=== PATIENT | female | born 1950 | race Caucasian/White ===

== ENCOUNTER → 2023-12-18 11:41 | Outpatient (REF) | payer MEDICARE, OTHER, SELFPAY | LOC: WDC 11:41 | PROVIDERS: ATTENDING PHYSICIAN Obstetrics & Gynecology Gynecology | DX: Z12.31 Encounter for screening mammogram for malignant neoplasm of breast (principal) | CPT/HCPCS: 77063; 77067 ==

== ENCOUNTER → 2024-11-01 10:15 | Outpatient (REF) | payer MEDICARE, OTHER, SELFPAY | LOC: RAD 10:15 | PROVIDERS: ATTENDING PHYSICIAN Obstetrics & Gynecology Gynecology; FAMILY PHYSICIAN Physician Assistant Medical | DX: M81.0 Age-related osteoporosis without current pathological fracture (principal) | CPT/HCPCS: 77080 ==

== ENCOUNTER → 2024-12-23 11:45 | Outpatient (REF) | payer MEDICARE, OTHER, SELFPAY | LOC: WDC 11:45 | PROVIDERS: ATTENDING PHYSICIAN Obstetrics & Gynecology Gynecology; FAMILY PHYSICIAN Physician Assistant Medical | DX: Z12.31 Encounter for screening mammogram for malignant neoplasm of breast (principal) | CPT/HCPCS: 77063; 77067 ==

== ENCOUNTER → 2025-04-18 10:58 | Outpatient (REF) | payer MEDICARE, OTHER, SELFPAY ==
[2025-04-18 11:48] LABS: Hematocrit 43.3 % (37.0-47.0); Hemoglobin 14.4 g/dL (12.0-16.0); Mean Corp Hgb Conc. 33.3 g/dL (33.0-37.0); Mean Corpuscular Volume 93.7 fL (81.0-99.0); Nucleated Red Blood Cells % 0 %; Platelet Count 269 10^3/uL (130-400); Red Cell Dist. Width 12.2 % (11.5-14.5)
[2025-04-18 12:27] LABS: Blood Urea Nitrogen 20 mg/dl (7-17); Calcium 9.7 mg/dl (8.4-10.2); Carbon Dioxide 25 mmol/L (22-30); Glucose 99 mg/dl (70-99); eGFR > 60.00
[2025-04-18 12:32] LABS: Chloride 107 mmol/L (98-107); Potassium 4.8 mmol/L (3.5-5.1); Sodium 139 mmol/L (135-145)
== END ==
LOC: REG 10:58
PROVIDERS: ATTENDING PHYSICIAN Orthopaedic Surgery; FAMILY PHYSICIAN Physician Assistant Medical
DX: Z01.818 Encounter for other preprocedural examination (principal)
CPT/HCPCS: 36415; 80048; 85025; 93005

== ENCOUNTER → 2025-04-29 17:20 | Outpatient (REF) | payer MEDICARE, OTHER, SELFPAY | LOC: CLAB 17:20 | PROVIDERS: ATTENDING PHYSICIAN Orthopaedic Surgery | DX: R22.32 Localized swelling, mass and lump, left upper limb (principal) | CPT/HCPCS: 88304 ==